=== PATIENT | female | born 1965 | race African-American/Black ===

== ENCOUNTER 2019-06-06 01:35 | Emergency (ER) | payer MEDICAID ==
[~2019-06-06] VITALS: Ht 175.3 cm; Wt 127.0 kg
[2019-06-06 01:49] VITALS: BP 148/90
--- NOTE | 2019-06-06 02:05 | NUR ---
PT AMBULATED TO BED 11 WITH STEADY GAIT. NEGATIVE SCREENING FOR COVID19
--- NOTE | 2019-06-06 02:15 | NUR ---
53F PT DYED HAIR ON WEDNESDAY AND SINCE THEN HAS FELT HER SCALP ITCHY. YESTERDAY IN THE MORNING PT FELT LEFT FACIAL ITCHING AROUND 4PM AND THEN AROUND 430PM PT NOTICED BILATERAL FACIAL SWELLING, ESPECIALLY AROUND THE EYES. RASH NOTED ON EARS, NECK, SCALP. PT TOOK BENADRYL 25MG AT 830PM LAST NIGHT AND VISINE ALLERGY EYE DROPS AT 7PM, WITH NO RELIEF. PT AIRWAY PATENT, TALKING IN FULL SENTENCES, O2SAT 99% ROOM AIR. PT DENIES ANY DIFFICULTY SWALLOWING. RR 14 EVEN AND UNLABORED. PT STATES THAT THEIR RESPIRATORY ISSUE IS WHEN A COUPLE OF YEARS AGO THE PT HAD INHALED AN INSECT AND IT LEFT A COCOON ON THE LEFT UPPER LOBE OF HER LUNGS. STATES THAT DOCTORS GAVE HER MEDICATIONS TO DISSOLVE IT BUT SINCE THEN, HAS CONTINUOUS PAIN ON THE CHEST. MEDICAL HX: HTN/ANXIETY/RESPIRATORY ISSUE/ DEGENERATIVE JOINT DISEASE/L4-L5 FUSION NKA
--- NOTE | 2019-06-06 02:19 | NUR ---
DR. BREWER AT BEDSIDE EXAMINING PT
--- NOTE | 2019-06-06 02:19 | NUR ---
Elba cabral in [facility] - 06/06/19 at 0224 by [facility] DOCTOR ROCCO AT BEDSIDE EVALUATING PATIENT.
[2019-06-06] MEDS ORDERED: predniSONE 20 MG TAB PO ONE (02:30)
--- NOTE | 2019-06-06 02:36 | NUR ---
PT MEDICATED WITH PREDNISONE.
[2019-06-06 02:55] VITALS: BP 140/84
--- NOTE | 2019-06-06 02:55 | NUR ---
Patient discharged with v/s stable. Written and verbal after care instructions given and explained. Patient alert, oriented and verbalized understanding of instructions. Ambulatory with steady gait. All questions addressed prior to discharge. ID band removed. Patient advised to follow up with PMD. Rx of ASPIRIN, BENADRYL, NORCO, PREDNISONE, ALBUTEROL, PEPCID given. Patient educated on indication of medication including possible reaction and side effects. Opportunity to ask questions provided and answered.
== END 2019-06-06 02:55 | disposition home or self-care (01) ==
LOC: MED 01:35
DX: T78.49XA Other allergy, initial encounter (principal); L23.9 Allergic contact dermatitis, unspecified cause; X58.XXXA Exposure to other specified factors, initial encounter
CPT/HCPCS: 99283; J7512; 99282